=== PATIENT | male | born 1990 | race Caucasian/White ===

== ENCOUNTER 2018-09-10 08:43 | Emergency (ER) | payer MEDICARE, MEDICAID, SELFPAY ==
[2018-09-10 08:47] VITALS: BP 158/77; PULSE 65; RESP 14; TEMP 37.3; O2SAT 95
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
[2018-09-10] MEDS: Fluorescein STRIPS 100/BOX 1 MG (09:38)
[2018-09-10] MEDS: Tetracaine 0.5% 4 ML BTL (09:39)
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
== END 2018-09-10 09:57 | disposition home or self-care (01) ==
LOC: ER 10:14
PROVIDERS: Emergency Provider Student in an Organized Health Care Education/Training Program
DX: H57.11 Ocular pain, right eye (principal); W22.8XXA Striking against or struck by other objects, initial encounter; I47.1 Supraventricular tachycardia
CPT/HCPCS: 99282

== ENCOUNTER 2019-08-03 17:55 | Emergency (ER) | payer MEDICARE, MEDICAID, SELFPAY ==
[2019-08-03 17:57] VITALS: BP 145/98; PULSE 67; RESP 15; TEMP 36.6; O2SAT 95
[2019-08-03] MEDS: Fluorescein STRIPS 100/BOX 1 MG (18:10)
[2019-08-03] MEDS: Balanced Salt Solution 15 ML BTL (18:10)
[2019-08-03] MEDS: Tetracaine 0.5% 4 ML BTL (18:10)
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
[2019-08-03] MEDS: Erythromycin Ophth Oint 3.5 GM TUBE OP (18:17)
--- NOTE | 2019-08-03 18:44 | NUR.NOTE ---
Nursing Note: Referral faxed to [facility]. Cat Cummings.
== END 2019-08-03 18:25 | disposition home or self-care (01) ==
PROVIDERS: Emergency Provider Emergency Medicine
DX: T15.02XA Foreign body in cornea, left eye, initial encounter (principal)
CPT/HCPCS: 65222

== ENCOUNTER 2020-11-02 21:12 | Emergency (ER) | payer MEDICARE, MEDICAID, SELFPAY ==
[2020-11-02 21:21] VITALS: BP 145/96; PULSE 69; RESP 16; TEMP 37.2; O2SAT 96
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
[2020-11-02] MEDS: Acetaminophen 500 MG TAB 1000 MG PO (21:58)
[2020-11-02] MEDS: Cyclobenzaprine 10 MG TAB PO (21:58)
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
[2020-11-02 22:31] VITALS: BP 135/75; PULSE 52; RESP 18; O2SAT 98
--- NOTE | 2020-11-17 15:05 | NUR.NOTE ---
Nursing Note: Referral faxed to ENT today so that patient could get an appt. It was stated in the provider note that he should follow up. Cat Cummings
== END 2020-11-02 22:35 | disposition home or self-care (01) ==
PROVIDERS: Emergency Provider Physician Assistant
DX: S02.2XXA Fracture of nasal bones, initial encounter for closed fracture (principal); S06.0X0A Concussion without loss of consciousness, initial encounter; W50.0XXA Accidental hit or strike by another person, initial encounter
CPT/HCPCS: 99284; 70450

== ENCOUNTER 2022-03-28 16:47 | Emergency (ER) | payer MEDICARE, MEDICAID, SELFPAY ==
[2022-03-28 17:07] VITALS: BP 148/75; PULSE 60; RESP 18; TEMP 36.8; O2SAT 94
--- NOTE | 2022-03-28 17:15 | DI.CT_ITS ---
Exam(s) CT CHEST PE CTA EXAM: CT CHEST PE CTA CLINICAL HISTORY: hemoptysis. TECHNIQUE: Imaging Protocol: CT angiography of the chest was performed using pulmonary embolus amilcar col. Multi planar reconstructions were performed. CONTRAST MATERIAL: Intravenous: Omnipaque 350 Contrast volume: 100 cc COMPARISON: No exams were available for comparison FINDINGS: CHEST: PULMONARY ARTERIES: There are no obvious intraluminal filling defects to suggest acute pulmonary embo li.Less than optimal bolus timing. LUNGS: There are bilateral multilevel ground-glass infiltrates involving all lobes both lungs. There are no pleural effusions. MEDIASTINUM: Slightly enlarged bilateral hilar lymph nodes also subcarinal lymph nodes are enlarged. Visualized thyroid unremarkable. CARDIAC: Heart size is upper normal. There is no pericardial effusion.Caliber of the thoracic aorta is within normal limits. No evidence of aortic dissection. There is no significant shift of the inte rventricular septum. PARTIALLY VISUALIZED UPPERMOST ABDOMEN: No obvious findings OSSEOUS: No significant osseous lesions.. IMPRESSION: 1. No evidence of obvious acute pulmonary emboli.Suboptimal bolus injection. 2. There are multiple bilateral areas of ground-glass infiltrate, not associated with pleural effusio ns. Recommend testing forCovid-19 3. Slightly enlarged bilateral hilar lymph nodes and subcarinal lymph nodes RADIATION DOSE DELIVERED: 480.91mGy.cm Total DLP DATA REPOSITORY: All CT scans at this facility are submitted to the National Radiology Data Registry (NRDR) Dose Index Registry (DIR) with the [employer] ([employer]). RADIATION OPTIMIZATION: All CT scans at this facility use at least one of these dose optimization te chniques: automated exposure control; mA and/or kV adjustment per patient size (includes targeted exa ms where dose is matched to clinical indication); or iterative reconstruction.
--- NOTE | 2022-03-28 17:31 | ED.GENADUL_ITS ---
Discharge Plan Disposition Patient Disposition: HOME Condition: Stable Discharge Details Clinical Impression: Cough, Hemoptysis Primary Care Provider: None,None ED Provider: Guido Chopra Home Meds and New Rx's Prescriptions: New prednisone 20 mg tablet 60 mg PO DAILY 4 Days Qty: 12 0RF doxycycline hyclate 100 mg tablet 100 mg PO BID Qty: 14 0RF Continued methadone 10 mg/mL Syringe 37 mg PO DAILY cyclobenzaprine 10 mg tablet 10 mg PO TID PRNQty: 10 0RF Discharge Instructions Instructions: Acute Cough (ED) Additional Instructions: your cat scan did not show any blood clots, you did test positive for flu if not better within a week follow up with your primary care provider you can use the inhaler every 2-4 hours as needed if you feel more ill, have severe worsening difficulty breathing or severe pain return to the emergency department Medical Decision Making 31 yo male who denies chronic medical problems, was a smoker until he states he quit a few weeks ago, comes in with 1 week of cough that is now productive and has blood in it. HE denies any fevers but has had chills, denies dyspnea or chest pain/pressure. He denies any recent travel. He does state his kids tested positive for flu last week. He arrives stable speaking in full sentences. He has diffuse wheezing in both lungs on exam, no murmurs, no jvd, no leg swelling, normal gait. His symptoms seem infectious with a component of reactive airway disease but given the reported hemoptysis will obtain cbc, cmp and cta to evaluate for pe vs infiltrate. He has no chest pain or discomfort so do not feel workup for entities such as acs or dissection indicated. labs unremarkable other than positive flu, cta negative for pe, mild pneumonitis. He feels better and has mild apical wheezing, outside window for tamiflu but given continued cough and pneumonitis on ct will provide antibiotics. He is stable for d/c, advised to f/u with pcp and return precautions given Differential Diagnosis Differential Diagnosis: covid, flu, pneumonia, pe Imaging Data Radiologic Study: Attestation: I personally reviewed and interpreted this imaging study as follows: Imaging: CT Scan Radiologist's impression: IMPRESSION: No large pulmonary emboli. Mildly limited study as described Mild pneumonitis which is nonspecific and may be infectious/inflammatory. Correlate for COVID-19 Lab Data Lab results reviewed: Yes I reviewed the patient's lab results. HPI General Mode of arrival: ambulatory . Date/Time Provider Initiated Documentation: 03/28/22 16:52 . Limitations to Documentation: no limitations . Information obtained by: patient . History of Present Illness 31 year old M presents to the emergency department with the chief complaint of cough, described as moderate, Patient started experiencing this week(s) (1) and it has been intermittent. No relieving factors improve symptom(s), No exacerbating factors reported . Patient notes other (hemoptysis); denies chest pain. Patient did receive the following treatments prior to arrival, none Related Data Home Medications Medication Instructions Recorded Confirmed cyclobenzaprine 10 mg tablet 10 mg PO TID PRN #10 tabs 11/02/20 methadone 10 mg/mL oral syringe 37 mg PO DAILY 11/02/20 03/28/22 (FOR ORAL USE ONLY) doxycycline hyclate 100 mg tablet 100 mg PO BID #14 tabs 03/28/22 prednisone 20 mg tablet 60 mg PO DAILY 4 days #12 tabs 03/28/22 Previous Rx's Medication Instructions Recorded cyclobenzaprine 10 mg tablet 10 mg PO TID PRN #10 tabs 11/02/20 doxycycline hyclate 100 mg tablet 100 mg PO BID #14 tabs 03/28/22 prednisone 20 mg tablet 60 mg PO DAILY 4 days #12 tabs 03/28/22 Allergies Allergy/AdvReac Type Severity Reaction Status Date / Time Latex, Natural Rubber Allergy Intermediate Unverified 11/02/20 21:26 morphine Allergy Mild itchy hives Unverified 11/02/20 21:26 Sulfa (Sulfonamide Allergy Mild Hives Unverified 11/02/20 21:26 Antibiotics) General Stated Complaint: RespSymp HUSSAIN: 3 Review of Systems All systems reviewed & are unremarkable except as noted in HPI and below Constitutional Constitutional: Denies fever(s) and Denies weakness Cardiovascular Cardiovascular: Denies chest pain and Denies dyspnea Respiratory Respiratory: Denies dyspnea Gastrointestinal Gastrointestinal: Denies abdominal pain, Denies nausea and Denies vomiting Integumentary/Breasts Skin/Breast: Denies rash Neurologic Neurologic: Denies weakness PFSH All Active Problems (Updated 03/28/22 @ 19:33 by Guido Chopra MD) Concussion (Acute) Fracture closed, nasal bone (Acute) Cough (Acute) Hemoptysis (Acute) Medical History (Updated 03/28/22 @ 19:33 by Guido Chopra MD) Fused fingers Hernia Herniated disc SVT (supraventricular tachycardia) Social History Smoking/Tobacco Use Status: Former Tobacco Use Smoking risk assessment performed?: Yes Alcohol Intake: current Alcohol Intake frequency: holidays/special occasions only Drug use: Never Substance use type: does not use Details: prescribed methadone Do you feel safe at home: Yes Do you feel safe in your relationship?: Yes Exam Const General: no acute distress Orientation: alert HENMT Head: normal to inspection Ears: external ears normal General nose exam: external nose normal Mouth: moist mucous membranes Eyes General: appearance normal, both eyes and all related structures Neck Neck: normal visual inspection Resp Effort & Inspection: normal respiratory effort, able to speak in complete sentences, audible wheezes and cough Cardio Rate: regular rate Skin General skin exam: no rashes or lesions noted Neuro General: patient alert and patient oriented x3 Extrem General: normal to inspection Psych Mental Status: mental status grossly normal Course Vital Signs Vital signs: Vital Signs Temperature 36.8 C 03/28/22 17:07 Pulse 60 03/28/22 17:07 Respiratory Rate 18 03/28/22 17:07 Blood Pressure 148/75 H 03/28/22 17:07 Pulse Oximetry 94 03/28/22 17:07 Temperature 36.8 C 03/28/22 17:07 Temperature Source Oral 03/28/22 17:07 Pulse 60 03/28/22 17:07 Respiratory Rate 18 03/28/22 17:07 Blood Pressure 148/75 H 03/28/22 17:07 Blood Pressure Position Sitting 03/28/22 17:07 Pulse Oximetry 94 03/28/22 17:07 Oxygen Delivery Method Room Air 03/28/22 17:07 Oxygen Flow Rate 0 03/28/22 17:07 Pain Level 0 03/28/22 17:07
[2022-03-28 18:07] LABS: Abs Immature Grans 0.02 10^3/uL (0.0-0.06); Absolute Basophil Count 0.01 10^3/uL (0.0-0.2); Absolute Eosinophil Count 0.02 10^3/uL (0.0-0.7); Absolute Lymphocyte Count 1.39 10^3/uL (1.2-3.4); Absolute Monocyte Count 1.12 10^3/uL (0.1-0.8); Absolute Neutrophil Count 5.15 10^3/uL (1.2-6.7); Basophils % 0.1; Eosinophils % 0.3; HCT 41.7 % (40.0-50.0); HGB 14.4 g/dL (13.5-17.5); Immature Grans % 0.3; MCH 29.6 pg (27.0-33.0); MCHC 34.5 % (32.0-36.0); MCV 86 fL (80-95); MPV 11.1 fL (8.0-11.0); Monocytes % 14.5; Neutrophils % 66.8; Platelet Count 145 10^3/uL (130-400); RBC 4.86 10^6/uL (4.36-5.78); RDW 12.3 % (11.8-14.1); RDW-SD 39.1 fL; WBC 7.71 10^3/uL (4.4-10.8)
[2022-03-28] MEDS: methylPREDNISolone SUCC 125 MG VIAL IVP (18:17)
[2022-03-28 18:18] VITALS: RESP 2; RESP 20; O2SAT 97
[2022-03-28] MEDS: Albuterol/Ipratropium 3 ML UPD VIAL UPD (18:18)
[2022-03-28] MEDS: Normal Saline 1,000 ML 1000 ML IV (18:19)
[2022-03-28 18:24] LABS: Bilirubin Small (Negative); Blood Negative (Negative); Clarity Sl Cloudy (Clear); Glucose Negative (Negative); Ketones Negative (Negative); Leukocyte Esterase Negative (Negative); Nitrite Negative (Negative); Specific Gravity >= 1.030 (1.005-1.025); Urobilinogen 0.2 EU/dL (Up TO 0.2)
[2022-03-28 18:27] LABS: ALT 37 U/L (16-63); AST 31 U/L (15-37); Albumin 3.7 g/dL (3.4-5.0); Alkaline Phosphatase 56 U/L (46-116); Anion Gap 8.1 mmol/L (3-11); BUN 11 mg/dL (7-18); Bilirubin, Total 0.7 mg/dL (0.2-1.0); CO2 30.9 mmol/L (21.0-32.0); Calcium 8.7 mg/dL (8.5-10.1); Chloride 96 mmol/L (98-107); Estimated GFR 103.19 (mL/min/1.73m2); Glucose 87 mg/dL (74-106); Magnesium 1.9 mg/dL (1.8-2.4); Potassium 3.9 mmol/L (3.5-5.1); Sodium 135 mmol/L (136-145); Total Protein 8.1 g/dL (6.4-8.2)
[2022-03-28 18:41] LABS: Bacteria Negative HPF (Negative); C & S Indicated? No; Casts Negative LPF (Negative); Crystals Negative HPF (Negative); Epithelial Cells Few HPF (Negative); Mucus Negative (Negative); RBC 0-2 HPF (0-2); WBC 0-2 HPF (0-5)
[2022-03-28 18:45] LABS: COVID-19 PCR Negative (Negative); Influenza A PCR Positive (Negative); Influenza B PCR Negative (Negative); RSV PCR Negative (Negative)
[2022-03-28 18:48] LABS: Source Nasopharynx
[2022-03-28] MEDS: Omnipaque 350 MG/ML 100 ML BTL IJ (18:51)
[2022-03-28] MEDS: Normal Saline - Diluent 50 ML VIAL IJ (18:52)
[2022-03-28] MEDS: Normal Saline Flush 10 ML SYR IVP (18:52)
--- NOTE | 2022-03-28 19:08 | DI.VRAD_ITS ---
PROCEDURE INFORMATION: Exam: CTA Chest With Contrast Exam date and time: 03/28/2022 6:48 PM Age: 31 years old Clinical indication: Other: Hemoptysis; Patient HX: PT had cardiac ablation, svt, asthma; Additional info: Pts iv leaked TECHNIQUE: Imaging protocol: Computed tomographic angiography of the chest with contrast. 3D rendering (Not supervised by radiologist): MIP and/or 3D reconstructed images were created by the technologist. Radiation optimization: All CT scans at this facility use at least one of these dose optimization techniques: automated exposure control; mA and/or kV adjustment per patient size (includes targeted exams where dose is matched to clinical indication); or iterative reconstruction. Contrast material: OMNIPAQUE 350; Contrast volume: 100 ml; Contrast route: INTRAVENOUS (IV); COMPARISON: CT NECK WITH CONTRAST 10/22/2015 9:39 PM FINDINGS: Limited due to bolus timing Pulmonary arteries: No large pulmonary emboli. Mildly limited for small pulmonary emboli evaluation in the lower lobes Aorta: Unremarkable. No aortic aneurysm. No aortic dissection. Lungs: Scattered mild ground-glass opacities in a perihilar and peripheral distribution No consolidation. No masses. Pleural spaces: No pneumothorax. No pleural effusion. Heart: Mild cardiomegaly. No pericardial effusion. Lymph nodes: No enlarged lymph nodes. Bones/joints: No acute fracture. Soft tissues: Unremarkable. IMPRESSION: No large pulmonary emboli. Mildly limited study as described Mild pneumonitis which is nonspecific and may be infectious/inflammatory. Correlate for COVID-19 Dictated and Authenticated by: Torey Avila MD. Ordering:NEVA Lora MD
[2022-03-28] MEDS: Albuterol HFA 8 GM 60 PUFF INH IH (19:49)
[2022-03-28] MEDS: Doxycycline Hyclate 100 MG CAP PO (19:49)
[2022-03-29 01:24] VITALS: RESP 15
== END 2022-03-28 18:56 | disposition home or self-care (01) ==
PROVIDERS: Emergency Provider Emergency Medicine
DX: R04.2 Hemoptysis (principal); Z20.822 Contact with and (suspected) exposure to COVID-19
CPT/HCPCS: 71275; 80053; 87637; 96361; 96374; 99284; 99285; 81003; 81015; 83735; 85025; J2930; J3490; J7620